=== PATIENT | female | born 1945 | race Caucasian/White ===

== ENCOUNTER 2017-08-05 08:24 | Emergency (ER) | payer MEDICARE, MEDICAID ==
[~2017-08-05] VITALS: Ht 162.6 cm; Wt 81.7 kg
[~2017-08-05 08:24] MED LIST: ASPIRIN EC81 MG PO; AZITHROMYCIN250 MG PO; BENADRYL25 MG PO; CALCIUM500 M1; PRILOSEC20 MG PO
[2017-08-05] MEDS ORDERED: ZITHROMAX250 MG PO (08:46)
[2017-08-05] MEDS ORDERED: ALEVE220 M1 PO (08:47)
[2017-08-05] MEDS ORDERED: PRAVASTATIN SOD40 MG PO (08:47)
[2017-08-05] MEDS ORDERED: BENZONATATE100 MG PO (08:48)
[2017-08-05] MEDS ORDERED: VENTOLIN HFA18 GM INH (08:54)
[2017-08-05] MEDS ORDERED: FLONASE ALLERG9.9 ML NAS (08:54)
[2017-08-05] MEDS ORDERED: PREDNISONE20 MG PO (08:54)
== END 2017-08-05 10:24 | disposition home or self-care (01) ==
LOC: ED 08:24
DX: J45.909 Unspecified asthma, uncomplicated (principal); E78.00 Pure hypercholesterolemia, unspecified; Z88.2 Allergy status to sulfonamides; Z88.8 Allergy status to other drugs, medicaments and biological substances; Z88.0 Allergy status to penicillin; Z91.012 Allergy to eggs; Z79.2 Long term (current) use of antibiotics; Z79.899 Other long term (current) drug therapy; Z79.82 Long term (current) use of aspirin
CPT/HCPCS: 94640; 99283; J7512

== ENCOUNTER 2019-05-10 11:48 | Day surgery (SDC) | payer MEDICARE, OTHER ==
[~2019-05-10] VITALS: Ht 160 cm; Wt 84.8 kg
--- NOTE | ~2019-05-10 | PATH ---
[facility] [address], [place] [address] Draft SPECIMEN(S): A DUODENUM SECOND SPECIMEN(S): B ANTRUM/PYLORUS SPECIMEN(S): C PROXIMAL CARDIA POLYP SPECIMEN(S): D DISTAL LOWER ESOPHAGUS SPECIMEN(S): E MIDDLE ESOPHAGUS SPECIMEN SOURCE: A. DUODENUM SECOND B. ANTRUM/PYLORUS C. PROXIMAL CARDIA POLYP D. DISTAL LOWER ESOPHAGUS E. MIDDLE ESOPHAGUS CLINICAL HISTORY: GERD, reflux. Rule out: Gastric polyps, small hiatal hernia. MICROSCOPIC DESCRIPTION: A, B, C. Histologic sections of all submitted blocks are examined by light microscopy. These findings, together with the gross examination, support the pathologic diagnosis. D. Sections reveal biopsies of esophageal mucosa composed of stratified squamous nonkeratinizing epithelium. The basal cell layer is mildly prominent and rete ridges are mildly elongated. There are small numbers of plasma cells and lymphocytes within the mucosa. Eosinophils are not a feature. No glandular mucosa is present. There is no evidence of malignancy or atypia. E. Sections reveal biopsies of esophageal mucosa composed of stratified squamous nonkeratinizing epithelium. The basal cell layer is not prominent and rete ridges are not elongated. A few intraepithelial lymphocytes are seen. Intraepithelial eosinophils are not a feature. There is no evidence of malignancy or atypia. LJA:cml FINAL PATHOLOGIC DIAGNOSIS: A. Mucosa, second portion of duodenum, biopsy: - Duodenal mucosa with normal villous architecture, no microscopic pathologic diagnosis. B. Mucosa, antrum, biopsy: - Minimal inactive chronic gastritis. - Negative for the presence of bacteria morphologically consistent with Helicobacter on HE stained sections. C. Mucosa, proximal gastric cardia, biopsy: PATIENT NAME: DOROTEO RAY PATHOLOGY DATE OF : 45 REPORT #: [id number] PHYSICIAN: RAFAEL PATHOLOGY PCP: MAMTA INGRAM MD REPORT IS CONFIDENTIAL AND NOT TO BE RELEASED WITHOUT AUTHORIZATION [facility] [address], [place] [address] Draft - Hyperplastic polyp. - Negative for malignancy and atypia. D. Mucosa, lower esophagus, biopsy: - Features suggestive but not entirely diagnostic of reflux. E. Mucosa, middle esophagus, biopsy: - No microscopic pathologic diagnosis. LJA:cml:C2NR GROSS DESCRIPTION: Five specimens are received in five containers, labeled "MB." A. The specimen, labeled "MB, #1" and "duodenum biopsy" on the requisition, is received in formalin and consists of two soft bonilla tissue fragments that measure 0.2 and 0.3 cm and are submitted in toto in cassette (A1). B. The specimen, labeled "MB, #2" and "antrum/pylorus biopsy" on the requisition, is received in formalin and consists of three soft bonilla tissue fragments that vary from 0.1-0.3 cm and are submitted in toto in cassette (B1). C. The specimen, labeled "MB, #3" and "cardiac/proximal biopsy" on the requisition, is received in formalin and consists of four soft bonilla-pink tissue fragments that vary from 0.2-0.3 cm and are submitted in toto in cassette (C1). D. The specimen, labeled "MB, #4" and "lower esophagusdistal biopsy" on the requisition, is received in formalin and consists of four soft lu, flat tissue fragments that vary from 0.2-0.4 cm and are submitted in toto in cassette (D1). E. The specimen, labeled "MB, #5" and "middle esophagus" on the requisition, is received in formalin and consists of a 0.3 cm soft pink to lu, flat tissue fragment that is submitted in toto in cassette (E1). SS (under the direct supervision of a pathologist) The Gross Description was prepared using a voice recognition system. The report was reviewed for accuracy; however, sound-alike word errors, addition and/or deletions may occur. If there is any question about this report, please contact Client Services. PERFORMING LABORATORY: The technical component was performed by [facility] [address] (Certified Technician: Rachna Castañeda MD; CLIA# [id number]). [facility], [address] [place] [address]. 107, PATIENT NAME: DOROTEO RAY PATHOLOGY DATE OF : 45 REPORT #: [id number] PHYSICIAN: RAFAEL PATHOLOGY PCP: MAMTA INGRAM MD REPORT IS CONFIDENTIAL AND NOT TO BE RELEASED WITHOUT AUTHORIZATION [facility] [address] [facility] [place] [address] Draft Kirill [place]ard [id number] (CLIA# [id number]). Diagnostician: Jez Ureña MD Pathologist Electronically Signed 05/11/2019 Copies: ~ PATIENT NAME: DOROTEO RAY PATHOLOGY DATE OF : 45 REPORT #: [id number] PHYSICIAN: RAFAEL HOOKS PCP: MAMTA INGRAM MD REPORT IS CONFIDENTIAL AND NOT TO BE RELEASED WITHOUT AUTHORIZATION
[~2019-05-10 11:48] MED LIST changes: +ALEVE220 M1 PO; +BENZONATATE100 MG PO; +COMBIVENT RESPIM4 GM INH; +FLONASE ALLERG9.9 ML NAS; +LIPITOR40 MG PO; +PRAVASTATIN SOD40 MG PO; +PREDNISONE20 MG PO; +VENTOLIN HFA18 GM INH; +ZANAFLEX2 M1 PO; +ZITHROMAX250 MG PO
[2019-05-10] MEDS ORDERED: ZINC30 MG PO (12:18)
[2019-05-10] MEDS ORDERED: FISH OIL 1,0001 EAC7 PO (12:18)
[2019-05-10] MEDS ORDERED: VITAMIN C500 M1 PO (12:18)
[2019-05-10] MEDS ORDERED: ALLEGRA ALLERG180 MG PO (12:20)
--- NOTE | 2019-05-10 13:13 | NUR ---
05/10/19 1313 Liz Choe 1301-PATIENT ARRIVED TO PACU ON 3L NC PLACED ON 2L. RR EVEN. PATIENT DROWSY OPENING EYES AND TALKING. DENIES PAIN OR NAUSEA. REPORTS "JUST A LITTLE DIZZY AND TIRED" PATIENT CLOSES EYES. ABDOMEN SOFT. IVF INFUSING.
--- NOTE | 2019-05-11 21:15 | OR ---
[facility] [address] [place], [place] [address] Signed DATE OF OPERATION: 05/10/2019 SURGEON: Pao Lay MD PREOPERATIVE DIAGNOSIS: Persistent cough, considered possibly related to reflux disease. POSTOPERATIVE DIAGNOSES: 1. Poor flap valve, but normal-appearing esophagus. 2. Multiple proximal gastric polyps, additional antral polyps. PROCEDURE: Esophagogastroduodenoscopy with biopsy. ANESTHESIA: Intravenous sedation, fentanyl 100 mcg, Versed 5 mg. INDICATION: This 74-year-old white woman is a patient of Dr. Ingram and known to me from the past. She underwent upper endoscopy by me in 1998, showing a hiatal hernia. The patient has variably been treated with PPI medication over time. More recently, she has had issues of persistent cough, which she has attributed to reflux. She was empirically treated with Nexium [address] Ingram, which she thinks has helped her situation. She has no family history of esophageal or gastric cancer. She has minimal cervical dysphagia. She uses a wedge foam to sleep on, which improves her symptoms and decreases frequency of nocturnal cough. She is admitted at this time to undergo upper endoscopy to better characterize the problem, understanding the risks of bleeding, infection, and perforation. FINDINGS: To my surprise, the esophagus itself showed no sign of inflammation, stricture, neoplasm, Gibbons's changes, or other issue. The flap valve itself was rather poor consistent with small hiatal hernia. There were multiple proximal gastric polyps and a few antral polyps as well. CLOtest was negative. The duodenum was normal. DESCRIPTION OF PROCEDURE: The patient was brought to the endoscopy suite and given topical Hurricaine spray hypopharyngeal anesthesia and placed in lateral decubitus position. She was given intravenous sedation to the point of slurred speech and nystagmus. Full cardiopulmonary monitoring was maintained. A bite block was placed. An Olympus video upper endoscope Electronically Signed By: PAO LAY MD 05/11/19 5495 PATIENT NAME: DOROTEO RAY OPERATIVE REPORT DATE OF : 45 REPORT #: [id number] PHYSICIAN: PAO LAY MD PCP: MAMTA INGRAM MD REPORT IS CONFIDENTIAL AND NOT TO BE RELEASED WITHOUT AUTHORIZATION [facility] [address] [place], [place] [address] Signed was passed in the hypopharynx. Close inspection of the vocal cords showed them to be normal with no evidence of vocal cord nodule or other abnormality. The scope was then passed into the esophagus without problem and throughout its length, it was normal, including the distal portion with no sign of inflammation, stricture, Gibbons's changes, or other issue. The scope was passed to the stomach, which was insufflated with air. Excess gastric juices were suctioned free. Rugal folds appeared normal. The antrum was normal as was the pylorus. The scope was passed through the pylorus into the duodenum, which was normal. Biopsies were taken of the 2nd and bulbar portions and withdrawn to the antrum where additional biopsies were taken. Retroflexed view showed a rather poor flap valve, but no sign of large hiatal hernia proper. Multiple polyps, both confluent and independent were noted proximally. Narrow band imaging was used to better characterize them. [employer] Intern polyps were excised and passed for Pathology. CLOtest biopsies were taken of the antrum and more proximal stomach as well. The scope was withdrawn to the distal esophagus where the mucosa was once again examined and found to be normal in appearance. Multiple biopsies were taken of the distal esophagus and mid esophageal biopsies as well. Scope was further withdrawn. The proximal esophagus was normal. The scope was removed. The patient was taken to recovery room in good condition. CONCLUDING DIAGNOSIS: Persistent cough of uncertain etiology, possibly related to reflux admittedly, given poor flap valve but no sign of esophagitis or stricture. PLAN: Recommend continued use of PPI medication at this time. We will review her pathology reports regarding the polyps and the esophagus itself. Consider adding Carafate 1 g p.o. q.i.d. on empty stomach and she will call the office to arrange for a video esophagram to be performed. She will follow up with us after the upper GI study to review pathology reports and her clinical course. MD BRADNIE Justice/ALEKSANDRL /[id number] cc: Mamta Ingram MD Electronically Signed By: PAO LAY MD 05/11/19 2115 PATIENT NAME: DOROTEO RAY OPERATIVE REPORT DATE OF : 45 REPORT #: [id number] PHYSICIAN: PAO LAY MD PCP: MAMTA INGRAM MD REPORT IS CONFIDENTIAL AND NOT TO BE RELEASED WITHOUT AUTHORIZATION [address] [address] Signed Copies: MAMTA INGRAM MD ~ Electronically Signed By: PAO LAY MD 05/11/19 2115 PATIENT NAME: DOROTEO RAY OPERATIVE REPORT DATE OF : 45 REPORT #: [id number] PHYSICIAN: PAO LAY MD PCP: MAMTA INGRAM MD REPORT IS CONFIDENTIAL AND NOT TO BE RELEASED WITHOUT AUTHORIZATION
== END 2019-05-10 14:15 | disposition home or self-care (01) ==
LOC: OPS 11:48 → DS 13:00 → OPS 13:00
PROVIDERS: Surgery
PROC: 0DB78ZX Excision of Stomach, Pylorus, Via Natural or Artificial Opening Endoscopic, Diagnostic (ICD-10-PCS; 2019-05-10)
PROC: 0DB38ZX Excision of Lower Esophagus, Via Natural or Artificial Opening Endoscopic, Diagnostic (ICD-10-PCS; 2019-05-10)
PROC: 0DB28ZX Excision of Middle Esophagus, Via Natural or Artificial Opening Endoscopic, Diagnostic (ICD-10-PCS; 2019-05-10)
PROC: 0DB98ZX Excision of Duodenum, Via Natural or Artificial Opening Endoscopic, Diagnostic (ICD-10-PCS; principal; 2019-05-10 13:00)
DX: K29.50 Unspecified chronic gastritis without bleeding (principal); K31.7 Polyp of stomach and duodenum; R05 Cough; K21.0 Gastro-esophageal reflux disease with esophagitis; F32.9 Major depressive disorder, single episode, unspecified; E66.3 Overweight; Z68.33 Body mass index [BMI] 33.0-33.9, adult; Z88.0 Allergy status to penicillin; Z88.2 Allergy status to sulfonamides; Z79.899 Other long term (current) drug therapy
CPT/HCPCS: G0500; J2250; J3010; J7121

== ENCOUNTER 2023-10-22 01:44 | Emergency (ER) | payer MEDICARE, OTHER ==
[~2023-10-22] VITALS: Ht 160 cm; Wt 84.7 kg
[~2023-10-22 01:44] MED LIST changes: +ALLEGRA ALLERG180 MG PO; +FISH OIL 1,0001 EAC7 PO; +VITAMIN C500 M1 PO; +ZINC30 MG PO
[2023-10-22] MEDS ORDERED: PSEUDOEPHEDRINE HCL 30 MG TAB PO ONE (02:00)
[2023-10-22] MEDS ORDERED: KETOROLAC TROMETHAMINE 60 MG/2 ML VIAL IM ONE (02:00)
[2023-10-22] MEDS ORDERED: BENZONATATE 100 MG CAP PO ONE (02:00)
[2023-10-22 02:48] LABS: INFLUENZA B NAA NEGATIVE (NEGATIVE); RESPIRATORY SYNCYTIAL VIR NAA NEGATIVE (NEGATIVE)
[2023-10-22] MEDS ORDERED: CYCLOBENZAPRINE10 MG PO (02:58)
[2023-10-22] MEDS ORDERED: PAXLOVID 300-11 EAC1 PO (02:58)
[2023-10-22] MEDS ORDERED: NASAL DECONGEST30 MG PO (02:58)
[2023-10-22] MEDS ORDERED: INHALER, ASSIST DEVICES 1 EACH SPACER MISC ONE (03:00)
[2023-10-22] MEDS ORDERED: ALBUTEROL SULFATE 8 GM HOME.PACK INH ONE (03:00)
[2023-10-22] MEDS ORDERED: CYCLOBENZAPRINE HCL 10 MG HOME.PACK PO ONE (03:00)
[2023-10-22 03:23] VITALS: BP 136/79
== END 2023-10-22 03:26 | disposition home or self-care (01) ==
LOC: ED 01:44
PROVIDERS: Family Medicine
DX: U07.1 COVID-19 (principal); E78.00 Pure hypercholesterolemia, unspecified; Z79.899 Other long term (current) drug therapy; Z88.0 Allergy status to penicillin; Z88.2 Allergy status to sulfonamides; Z88.5 Allergy status to narcotic agent
CPT/HCPCS: 71045; 87502; 96372; 99284-25; A9270; J1885; U0002

== ENCOUNTER 2024-01-18 10:08 | Emergency (ER) | payer MEDICARE, OTHER ==
[~2024-01-18] VITALS: Ht 160 cm; Wt 84.7 kg
[~2024-01-18 10:08] MED LIST changes: +CYCLOBENZAPRINE10 MG PO; +NASAL DECONGEST30 MG PO; +PAXLOVID 300-11 EAC1 PO
[2024-01-18] MEDS ORDERED: DIPHTH,PERTUSS(ACELL),TET VAC 0.5 ML SYRINGE IM ONE (10:45)
[2024-01-18 11:21] VITALS: BP 145/56
== END 2024-01-18 11:22 | disposition home or self-care (01) ==
LOC: ED 10:08
DX: S61.217A Laceration without foreign body of left little finger without damage to nail, initial encounter (principal); K21.9 Gastro-esophageal reflux disease without esophagitis; E78.5 Hyperlipidemia, unspecified; Z88.0 Allergy status to penicillin; Z88.2 Allergy status to sulfonamides; Z79.899 Other long term (current) drug therapy; Z23 Encounter for immunization; W26.8XXA Contact with other sharp object(s), not elsewhere classified, initial encounter
CPT/HCPCS: 12001; 90471; 90715; 99282-25